=== PATIENT | male | born 1960 | race Caucasian/White ===

== ENCOUNTER → 2020-06-28 10:57 | Outpatient (CLI) | payer OTHER, SELFPAY ==
--- NOTE | 2020-06-28 | CA_ITS ---
APPROVED REPORT EXAM: Comprehensive 2D, Doppler, and color-flow Echocardiogram Warehouse Team Member: Katherine Shaffer RT(R) Ht: 6 ft 2 in Wt: 225lbs BSA: 2.29 BP: 130/80 mmHg Indications: CP, Fatigue, HTN, family history of HD 2D Dimensions LVOT 2.10 cm (M/F) 1.5-2.5 M-Mode Dimensions RVDd 2.01 cm (0.9-2.6) LA Diam 3.51 cm (1.9-4.0) LVDd 6.26 cm (3.5-5.7) Ao Diam 2.93 cm (2.0-3.7) LVDs 4.21 cm (3.5-5.7) IVSd 0.72 cm (0.6-1.1) PWd 0.91 cm (0.6-1.1) EF (Teich) 60.20% FS 32.70% EDV (Teich) 198.30 mL ESV (Teich) 79.00 mL LV Diastology E Decel Time 217.00 (160-240 msec) E/A Ratio 1.1 MED E' 7.90 (< 7 cm/sec) E'/MED E' Ratio 9.13 (>14) LAT E' 14.50 (<10 cm/sec) E/LAT E' Ratio 4.97 (>14) Mitral Valve MV E Max Cr. 72.00 (40-130 cm/s) MV A Velocity 65.00 (40-130 cm/s) E/A Ratio 1.11 MV Decel. Time 217.00 (160-240 ms) MV PHT 63.00 ms Left Ventricle Left atrium is mildly enlarged, left ventricle is normal size, mild concentric left ventricular hypertrophy, visually estimated ejection fraction 55% with no regional wall motion abnormality, grade 1 diastolic dysfunction seen without tissue Doppler evidence of raise left atrial pressure. Right Ventricle Right atrium and right ventricle are normal size and contractility. Aortic Valve Aortic valve is minimally thickened and fibrosed, there is no aortic stenosis or aortic insufficiency. Mitral Valve Mitral valve is grossly normal, there is trace mitral regurgitation. Tricuspid Valve Tricuspid valve is grossly normal, there is trace tricuspid regurgitation, tricuspid regurgitation jet velocity is inadequate for calculation of the right ventricular systolic pressure. Pulmonic Valve Pulmonic valve is poorly visualized. Great Vessels Aortic root is normal size. Pericardium No significant pericardial effusion noted. Conclusion 1. Mildly enlarged left atrium, normal left ventricular size, mild concentric left ventricular hypertrophy, visually estimated ejection fraction 55% with no regional wall motion abnormality, grade 1 diastolic dysfunction seen without tissue Doppler evidence of raise left atrial pressure. 2. Trace mitral and tricuspid regurgitation. 3. No significant pericardial effusion noted. Electronically signed by : Preston Mejia, 06/28/2020 11:53:45
== END ==
PROVIDERS: PCP Family Medicine; Visit Provider Family Medicine
DX: R07.9 Chest pain, unspecified (principal)
CPT/HCPCS: 93306